=== PATIENT | female | born 1960 | race Caucasian/White ===

== ENCOUNTER → 2023-02-07 | Outpatient (CLI) | payer BC ==
--- NOTE | 2023-02-07 14:37 | XR ---
EXAMINATION TYPE: XR lumbar spine 2 or 3V DATE OF EXAM: 02/07/2023 Comparison: None Clinical History: 62-year-old female [id number] Findings: There is a leftward chemical shift noted which may be positional. 5 lumbar type vertebral bodies. Mil d multilevel degenerative disc disease, more mild to moderate at L1-L2 and L2-L3 given disc space kimani rowing. Vertebral body heights are preserved and alignment maintained. Facet arthropathy mid to lower lumbar spine. Impression: 1. Mild multilevel degenerative disc disease, more mild to moderate at L1-L2 and L2-L3. 2. Facet arthropathy mid to lower lumbar spine. 3. No vertebral compression collapse or malalignment.
== END | disposition home or self-care (01) ==
LOC: RADXRMAIN 06:48
PROVIDERS: ATTEND Family Medicine
DX: M51.36 Other intervertebral disc degeneration, lumbar region (principal); M47.816 Spondylosis without myelopathy or radiculopathy, lumbar region
CPT/HCPCS: 72100

== ENCOUNTER 2024-01-25 06:35 | Emergency (ER) | payer BC ==
[2024-01-25 07:07] VITALS: RESP 18
[2024-01-25] MEDS: MORPHINE SULFATE 4 MG/ML SYRINGE IM STA (07:21)
--- NOTE | 2024-01-25 07:24 | ED ---
Upper Extremity HPI - General Chief Complaint: Extremity Injury, Upper Stated Complaint: Fall, Right Shoulder Injury Time Seen by Provider: 01/25/24 06:47 Source: patient, RN notes reviewed Mode of arrival: ambulatory Limitations: no limitations - History of Present Illness Initial Comments: 63-year-old female presents emergency department chief complaint of a fall. Patient states she had a trip and fall yesterday complains of right shoulder right elbow pain no head injury no loss conscious. Patient states that she has pain with any movement of her right shoulder very limited. - Related Data Allergies Allergy/AdvReac Type Severity Reaction Status Date / Time No Known Allergies Allergy Verified 01/25/24 06:41 Review of Systems ROS Statement: Those systems with pertinent positive or pertinent negative responses have been documented in the HPI. ROS Other: All systems not noted in ROS Statement are negative. Past Medical History Past Medical History: Eye Disorder, Hyperlipidemia, Hypertension History of Any Multi-Drug Resistant Organisms: None Reported Past Surgical History: No Surgical Hx Reported Past Psychological History: No Psychological Hx Reported Smoking Status: Never smoker Past Alcohol Use History: Occasional Past Drug Use History: None Reported General Exam Limitations: no limitations General appearance: alert, in no apparent distress Head exam: Present: atraumatic, normocephalic, normal inspection Eye exam: Present: normal appearance, PERRL, EOMI. Absent: scleral icterus, conjunctival injection, periorbital swelling Neck exam: Present: normal inspection, full ROM. Absent: tenderness, meningismus, lymphadenopathy Respiratory exam: Present: normal lung sounds bilaterally. Absent: respiratory distress, wheezes, rales, rhonchi, stridor Cardiovascular Exam: Present: regular rate, normal rhythm, normal heart sounds. Absent: systolic murmur, diastolic murmur, rubs, gallop, clicks Extremities exam: Present: other (Right shoulder limited range of motion neurovascular intact there is tenderness throughout the right shoulder with no obvious deformity) Neurological exam: Present: alert, oriented X3, CN II-XII intact Course Vital Signs 01/25/24 01/25/24 06:39 07:20 Temperature 98.6 F 98.1 F Pulse Rate 95 71 Respiratory 18 18 Rate Blood Pressure 159/76 117/68 O2 Sat by Pulse 100 100 Oximetry Medical Decision Making - Medical Decision Making Was pt. sent in by a medical professional or institution (, PA, BILL ADJUSTER, urgent care, hospital, or fpc...) When possible be specific @ -No Did you speak to anyone other than the patient for history (EMS, parent, family, police, friend...)? What history was obtained from this source @ -No Did you review nursing and triage notes (agree or disagree)? Why? @ -I reviewed and agree with nursing and triage notes Were old charts reviewed (outside hosp., previous admission, EMS record, old EKG, old radiological studies, urgent care reports/EKG's, fpc records)? Report findings @ -No old charts were reviewed Differential Diagnosis (chest pain, altered mental status, abdominal pain women, abdominal pain men, vaginal bleeding, weakness, fever, dyspnea, syncope, headache, dizziness, GI bleed, back pain, seizure, CVA, palpatations, mental health, musculoskeletal)? @ -Fall, arm fracture, arm contusion, shoulder sprain EKG interpreted by me (3pts min.). @ -None X-rays interpreted by me (1pt min.). @X-rays right shoulder shows proximal humerus fracture X-ray right elbow no acute fracture or dislocation CT interpreted by me (1pt min.). @ -None done U/S interpreted by me (1pt. min.). @ -None done What testing was considered but not performed or refused? (CT, X-rays, U/S, labs)? Why? @ -None What meds were considered but not given or refused? Why? @ -None Did you discuss the management of the patient with other professionals (professionals i.e. , PA, BILL ADJUSTER, lab, RT, psych nurse, socially responsible investment adviser, band reamer machine operator, teacher, personnel officer, vocational case manager)? Give summary @ -No Was smoking cessation discussed for >3mins.? @ -No Was critical care preformed (if so, how long)? @ -No Were there social determinants of health that impacted care today? How? (Homelessness, low income, unemployed, alcoholism, drug addiction, transportation, low edu. Level, literacy, decrease access to med. care, [facility], rehab)? @ -No Was there de-escalation of care discussed even if they declined (Discuss DNR or withdrawal of care, Hospice)? DNR status @ -No What co-morbidities impacted this encounter? (DM, HTN, Smoking, COPD, CAD, Cancer, CVA, ARF, Chemo, Hep., AIDS, mental health diagnosis, sleep apnea, morbid obesity)? @ -None Was patient admitted / discharged? Hospital course, mention meds given and route, prescriptions, significant lab abnormalities, going to OR and other pertinent info. @ -Discharge patient was placed in a sling for her right proximal humerus fracture she will follow-up with orthopedics. Patient was provided orthopedic follow-up. Undiagnosed new problem with uncertain prognosis? @ -No Drug Therapy requiring intensive monitoring for toxicity (Heparin, Nitro, Insulin, Cardizem)? @ -No Were any procedures done? @ -No Diagnosis/symptom? @ -Fall, right humerus fracture Acute, or Chronic, or Acute on Chronic? @ -Acute Uncomplicated (without systemic symptoms) or Complicated (systemic symptoms)? @ -Uncomplicated Side effects of treatment? @ -No Exacerbation, Progression, or Severe Exacerbation? @ -No Poses a threat to life or bodily function? How? (Chest pain, [place], [place], pneumonia, PE, COPD, DKA, ARF, appy, cholecystitis, CVA, Diverticulitis, Homicidal, Suicidal, threat to staff... and all critical care pts) @ -No Disposition Clinical Impression: Closed fracture of right proximal humerus Disposition: HOME SELF-CARE Condition: Stable Instructions (If sedation given, give patient instructions): Proximal Humerus Fracture (ED) Additional Instructions: Please return to the Emergency Department if symptoms worsen or any other luis daniel rns. Is patient prescribed a controlled substance at d/c from ED?: No Referrals: Carlos Plasencia DO [Primary Care Provider] - 1-2 days Trino Miramontes MD [Medical Doctor] - 1-2 days Time of Disposition: 07:49
--- NOTE | 2024-01-25 07:37 | XR ---
EXAMINATION TYPE: XR elbow limited RT DATE OF EXAM: 01/25/2024 COMPARISON: None HISTORY: Pain following fall TECHNIQUE: 2 view right elbow FINDINGS: Radius aligns normally with the humerus. Anterior fat-pad is normal. No elevation posterior fat pad is evident. Follow up exams can be performed 7-10 days from acute trauma for continued pain IMPRESSION: 1. No acute osseous abnormality right elbow
--- NOTE | 2024-01-25 07:40 | XR ---
EXAMINATION TYPE: MG 3D work up w/cad LT DATE OF EXAM: 01/25/2024 COMPARISON: NONE HISTORY: Pain TECHNIQUE: Shoulder examined in 3 projections. FINDINGS: The humeral head articulates with the glenoid. The acromio-clavicular junction is normal. Fracture of the surgical neck of the humerus. A follow up study can be performed 7-10 days from acute trauma for continued pain. MRI can be perfor med if soft tissue evaluation would be of benefit. IMPRESSION: 1. Fracture of the surgical neck of the right humerus.
[2024-01-25 07:50] VITALS: BP 117/68; PULSE 71; TEMP 98.1
[2024-01-25] MEDS: ACET/COD 300 MG/30 MG STARTER PACK 6 TAB BTL PO STA (08:04)
== END 2024-01-25 08:09 | disposition home or self-care (01) ==
LOC: EC 06:35
DX: S42.211A Unspecified displaced fracture of surgical neck of right humerus, initial encounter for closed fracture (principal); W01.0XXA Fall on same level from slipping, tripping and stumbling without subsequent striking against object, initial encounter
CPT/HCPCS: 73030; 73070; 99284; 96372; J2270